=== PATIENT | female | born 1980 | race Caucasian/White ===

== ENCOUNTER 2018-03-26 17:09 | Emergency (ER) | payer MEDICAID ==
[~2018-03-26] VITALS: Ht 170.2 cm; Wt 100.0 kg
[2018-03-26 17:26] VITALS: Ht 170.2 cm; Wt 100.0 kg
[2018-03-26] MEDS ORDERED: ALBUTEROL1.25 MG/3 INH (17:26)
[2018-03-26] MEDS ORDERED: ULTRAM50 MG PO (17:57)
[2018-03-26] MEDS ORDERED: VALIUM 2 MG TAB2 MG PO (17:57)
[2018-03-26 23:11] VITALS: BP 135/76
== END 2018-03-26 18:33 | disposition home or self-care (01) ==
LOC: D.ER 17:09
DX: S39.012A Strain of muscle, fascia and tendon of lower back, initial encounter (principal); X58.XXXA Exposure to other specified factors, initial encounter; Y93.89 Activity, other specified; Y92.019 Unspecified place in single-family (private) house as the place of occurrence of the external cause; M54.31 Sciatica, right side; F17.200 Nicotine dependence, unspecified, uncomplicated

== ENCOUNTER 2018-11-03 18:59 | Emergency (ER) | payer MEDICAID ==
[~2018-11-03] VITALS: Ht 170.2 cm; Wt 90.9 kg
[~2018-11-03 18:59] MED LIST: ALBUTEROL1.25 MG/3 INH; ULTRAM50 MG PO; VALIUM 2 MG TAB2 MG PO
[2018-11-03 19:08] VITALS: Ht 170.2 cm; Wt 90.9 kg
[2018-11-03 22:57] VITALS: BP 125/78
== END 2018-11-03 22:57 | disposition home or self-care (01) ==
LOC: D.ER 18:59
DX: M54.16 Radiculopathy, lumbar region (principal); G89.29 Other chronic pain

== ENCOUNTER 2018-11-06 16:24 | Emergency (ER) | payer MEDICAID ==
[~2018-11-06] VITALS: Ht 170.2 cm; Wt 90.9 kg
[2018-11-06 16:41] VITALS: Ht 170.2 cm; Wt 90.9 kg
[2018-11-06] MEDS ORDERED: CYCLOBENZAPRINE10 MG PO (17:18)
[2018-11-06] MEDS ORDERED: VOLTAREN75 MG PO (17:18)
[2018-11-06 18:00] VITALS: BP 144/60
== END 2018-11-06 18:00 | disposition home or self-care (01) ==
LOC: D.ER 16:24
DX: M54.5 Low back pain (principal); M54.30 Sciatica, unspecified side